=== PATIENT | male | born 2000 ===

== ENCOUNTER 2022-02-06 17:51 | Outpatient (REF) | payer MEDICAID, SELFPAY ==
[2022-02-06 20:41] LABS: ALT 161 U/L (16-63); AST 52 U/L (15-37); Albumin 4.5 g/dL (3.4-5.0); Alkaline Phosphatase 68 U/L (46-116); Anion Gap 10.7 mmol/L (3-11); BUN 13 mg/dL (7-18); Bilirubin, Total 1.3 mg/dL (0.2-1.0); CO2 25.3 mmol/L (21.0-32.0); CREATININE 0.9 mg/dL (0.70-1.30); Calcium 9.2 mg/dL (8.5-10.1); Calculated LDL 54 mg/dL (<100); Chloride 102 mmol/L (98-107); Cholesterol 115 mg/dL (<200); Glucose 94 mg/dL (74-106); HDL Cholesterol 30 mg/dL (40-60); Potassium 4.4 mmol/L (3.5-5.1); Sodium 138 mmol/L (136-145); Total Protein 7.6 g/dL (6.4-8.2); Triglyceride 155 mg/dL (<150)
[2022-02-09 13:32] LABS: HIV-1/2 Ag & Ab Screen Negative (Negative)
== END 2022-02-06 17:52 | disposition home or self-care (01) ==
LOC: NCHCN 17:51
PROVIDERS: Visit Provider Registered Nurse
DX: Z00.00 Encounter for general adult medical examination without abnormal findings (principal); E66.9 Obesity, unspecified; F10.99 Alcohol use, unspecified with unspecified alcohol-induced disorder
CPT/HCPCS: 80053; 80061; 87389

== ENCOUNTER 2022-05-07 17:16 | Outpatient (REF) | payer MEDICAID, SELFPAY ==
[2022-05-07 22:21] LABS: ALT 138 U/L (16-63); AST 47 U/L (15-37); Albumin 4.3 g/dL (3.4-5.0); Alkaline Phosphatase 64 U/L (46-116); Anion Gap 9.6 mmol/L (3-11); BUN 16 mg/dL (7-18); Bilirubin, Total 1.1 mg/dL (0.2-1.0); CO2 25.4 mmol/L (21.0-32.0); Calcium 9.1 mg/dL (8.5-10.1); Chloride 104 mmol/L (98-107); Glucose 127 mg/dL (74-106); Potassium 3.9 mmol/L (3.5-5.1); Sodium 139 mmol/L (136-145); Total Protein 7.4 g/dL (6.4-8.2)
== END 2022-05-07 17:17 | disposition home or self-care (01) ==
LOC: NCHCN 17:16
PROVIDERS: Visit Provider Registered Nurse
DX: I10 Essential (primary) hypertension (principal); F10.99 Alcohol use, unspecified with unspecified alcohol-induced disorder
CPT/HCPCS: 80053

== ENCOUNTER 2022-08-06 16:26 | Outpatient (REF) | payer MEDICAID, SELFPAY ==
[2022-08-06 21:18] LABS: Hemoglobin A1C 5.5 % (<5.7)
[2022-08-06 21:27] LABS: ALT 117 U/L (16-63); AST 42 U/L (15-37); Albumin 4.4 g/dL (3.4-5.0); Alkaline Phosphatase 62 U/L (46-116); Bilirubin, Direct 0.2 mg/dL (0.0-0.2); Total Protein 7.9 g/dL (6.4-8.2)
== END 2022-08-06 16:27 | disposition home or self-care (01) ==
LOC: NCHCN 16:26
PROVIDERS: Visit Provider Registered Nurse
DX: R74.8 Abnormal levels of other serum enzymes (principal); R73.9 Hyperglycemia, unspecified
CPT/HCPCS: 80076; 83036